=== PATIENT | female | born 1960 | race Caucasian/White ===

== ENCOUNTER → 2019-07-02 08:14 | Outpatient (CLI) | payer BC ==
--- NOTE | ~2019-07-02 | ST ---
PATIENT:JORGE LUIS HOWARD MEDICAL RECORD: [id number] SEX: F LOCATION:[facility] ORDER #: ADMISSION DATE: 07/02/19 AGE OF PATIENT: 59 REFERRING PHYSICIAN: INTERPRETING PHYSICIAN: DELGADO WOLFE MD DATE OF SERVICE: 07/02/2019 Nuclear Stress Test INDICATIONS: Angina, shortness of breath, syncope. She was exercised on standard Lexiscan protocol with 28 mCi of sestamibi injected at peak stress, 9 mCi used previously for rest images. FINDINGS: Gated SPECT reveals preserved ejection fraction at 66% with good wall motioning and thickening and brightening throughout all segments. SPECT Imaging: Cardiolite was used as myocardial perfusion agent. There is reversibility throughout the anterior and apical segments. This includes the basal, mid, apical anterior segments as well as the apex itself. The degree of reversibility is mild to moderate, the amount of myocardium involved is moderate. OVERALL IMPRESSION: This is an intermediate risk abnormal nuclear stress test, reversibility throughout the anteroapical segments, suggestive of hemodynamically significant coronary artery disease. TRANSINT:[id number] Voice Confirmation ID: [id number] DOCUMENT ID: [id number] DELGADO WOLFE MD CC: KARELY NAVARRO MD [id number] DICTATION DATE: 07/05/19 1218 SYSTEMS ADMINISTRATION ANALYST: 07/05/19 2237 DEP CLI 07/02/19 [address] [place] [address]
--- NOTE | ~2019-07-02 | EC ---
PATIENT:JORGE LUIS HOWARD DATE OF SERVICE: 07/02/19 SEX: F MEDICAL RECORD: [id number] DATE OF : 62 LOCATION:D[facility] AGE OF PATIENT: 59 ADMISSION DATE: 07/02/19 REFERRING PHYSICIAN: INTERPRETING PHYSICIAN: DELGADO LYNN MD ECHOCARDIOGRAM REPORT ECHO CHARGES 4 ECHO COMPLETE Date: 07/02/19 CLINICAL DIAGNOSIS: CAD/MURMUR/ANGINA ECHOCARDIOGRAPHIC MEASUREMENTS (adult normal given) AC root (d.<3.7cm) 3.0 cm LV Septum d (<1.2 cm> 1.1 cm Valve Excursion 1.5 cm LV Septum (systole) 1.4 cm Left Atria (s.<4.0cm> 3.0 cm LVPW d(<1.2cm) 1.4 cm RV (d.<2.3cm) 3.0 cm LVPW (sytole) 1.4 cm LV diastole(<5.6CM) 4.4 cm MV E-F(>70mm/sec) cm LV systole 3.0 cm LVOT Diameter 1.9 cm MV exc.(>10mm) 1.3 cm Est.ejection fraction (50-75%) % DOPPLER: LVIT cm/sec A 078.0cm/sec E 91. cm/sec LA cm/sec RVSP 27 mmHg LVOT 84 cm/sec AOP1/2T m/s Asc. Ao 108 cm/sec RVOT 58 cm/sec RA cm/sec PA 82 cm/sec AV Gradient Peak 4.68 mmHg AV Mean 2.60 mmHg AV Area 2.1 cm MV Gradient Peak 4.15 mmHg MV Mean 1.67 mmHg MV Area cm COMMENTS: Verifier Operator: Deepa BARNES Report Checker: 1 Dr. Lynn TAPE# PACS Pericardial Effusion N DATE OF SERVICE: 07/02/2019 ECHOCARDIOGRAM FINDINGS: 1. Left ventricular chamber size is within normal limits. Left ventricular systolic function is normal. Overall ejection fraction estimated at 60%. 2. Left atrium, right atrium, and right ventricle chamber sizes are within normal limits. 3. Valvular structures have normal structure and motion. ECHOCARDIOGRAM REPORT [id number] JORGE LUIS HOWARD 4. Doppler interrogation reveals mild mitral regurgitation, mild tricuspid regurgitation, no other valvular insufficiency or stenosis. Pulmonary systolic pressure is normal estimated at 27 mmHg. 5. No evidence of pericardial effusion or left ventricular thrombus. TRANSINT:[id number] Voice Confirmation ID: [id number] DOCUMENT ID: [id number] DELGADO LYNN MD CC: [id number] DICTATION DATE: 07/03/19 1312 ROCKET MOTOR TESTER: 07/03/19 1724 DEP CLI 07/02/19 [facility] [address] [id number]
[~2019-07-02 08:14] MED LIST: ESTRACE2 MG PO; FENOFIBRATE160 MG PO; GEODON80 MG PO; LAMICTAL100 MG PO; MOBIC7.5 MG PO; OXYBUTYNIN CHLOR5 MG PO; TRAZODONE HCL150 MG PO; ULTRAM50 MG PO; WELCHOL625 MG PO
[2019-07-13 08:15] VITALS: BMI 25.7
== END | disposition home or self-care (01) ==
LOC: D.HCCECHO 08:14
PROVIDERS: ATTEND Internal Medicine Interventional Cardiology
DX: I20.9 Angina pectoris, unspecified (principal); I25.10 Atherosclerotic heart disease of native coronary artery without angina pectoris

== ENCOUNTER → 2019-07-13 07:28 | Outpatient (CLI) | payer BC ==
[~2019-07-13] VITALS: Ht 160 cm; Wt 65.9 kg
--- NOTE | ~2019-07-13 | HEMODYNAMI ---
PATIENT:JORGE LUIS HOWARD MEDICAL RECORD: [id number] : 62 LOCATION:[facility] ADMISSION DATE: 07/13/19 Generatedon:07/13/201910:50 Patient name: JORGE LUIS HOWARD Patient #: [id number] SSN: [id number] : 1960 Date of study: 07/13/2019 Page: Of Hemodynamic Procedure Report Patient Data Patient Demographics Procedure consent was obtained First Name: JORGE LUIS Gender: Female Last Name: LEE : 1960 Patient #: [id number] Age: 59 year(s) Race: SSN: [id number] Additional ID: [id number] Contact details [address]: [address] [place] [address] State: [place] City: [place] Zip code: [address] Past Medical History Performed procedures and imaging results Date Procedure Procedure Results Comments 07/02/2019 Stress testing Positive->Intermediate with SPECT MPI risk Allergies Allergen Reaction Date Comments Reported Other allergy 07/13/2019 statins, Admission Admission Data Admission Date: 07/13/2019 Admission Time: 7:28 Arrival Date: 07/13/2019 Arrival Time: 0:00 Insurance Payor: Private health insurance [facility] #: [id number] Height (in.): 64 BSA: 1.71 (m2) Height (cm.): 162.56 BMI: 25.06 (kg/m2) Weight (lbs.): 146 Weight (kg.): 66.22 Lab Results Lab Result Date: 07/13/2019 Lab Result Time: 0:00 Biochemistry Name Units Result Min Max BUN mg/dl 16 --(---*)-- 7 18 Creatinine mg/dl 1 --(--*-)-- 0.6 1.3 CBC Name Units Result Min Max Hemoglobin g/dl 12.2 *-(----)-- 13.5 17.5 Procedure Procedure Types Cath Procedure Diagnostic Procedure LHC LHC w/Coronaries Sedation Charges Moderate Sedation up to 15 minutes Procedure Description Procedure Date Procedure Date: 07/13/2019 Procedure Start Time: 10:42 Procedure End Time: 10:48 Procedure Staff Name Function Sammy Lynn MD Performing Physician [place] Vila RT Monitor Pili Hernandez RN Nurse Cathy Lara RT Scrub Indication Angina Syncope Dyspnea Procedure Data Cath Procedure Fluoroscopy Diagnostic fluoroscopy Total fluoroscopy Time: 0.9 time: 0.9 min min Diagnostic fluoroscopy Total fluoroscopy dose: 162 dose: 162 mGy mGy Contrast Material Contrast Material Type Amount (ml) Isovue 300 41 Entry Location Entry Primary Successful Side Size Upsize Upsize Entry Closure Succes sful Closure Location (Fr) 1 (Fr) 2 (Fr) Remarks Device Remarks Femoral Right 5 Fr Exoseal artery Estimated blood loss: 5 ml Diagnostic catheters Device Type Used For End Catheter Placement MULTIPACK Pigtail 5 Fr Procedure catheter MULTIPACK JL 4.0 5Fr Procedure catheter MULTIPACK 3DRC 5Fr catheter Procedure Complications No complications Procedure Medications Medication Administration Route Dosage 0.9% NaCl I.V. 100 ml/hr Oxygen etCO2 Nasal cannula 2 l/min Lidocaine 2% added to field 20 Heparin Flush Bag added to field 2 bags (1000units/500ml NS) Versed I.V. 2 mg Fentanyl I.V. 50 mcg Versed I.V. 2 mg Fentanyl I.V. 50 mcg Hemodynamics Rest BSA: 1.71 (m2) HGB: 12.2 (g/dl) O2 Consumption: Estimated: 232.56 (ml/min) O2 Co nsumption indexed: Estimated:136 (ml/min/m) Pre Cath Intra NCS Post Cath Vital Signs Time Heart Resp SPO2 etCO2 NIBP Rhythm Pain Sedation Rate (ipm) (%) (mmHg) (mmHg) Status Level (bpm) 9:59:52 60 12 100 37.5 127/57(85) NSR 0 (11) 10(A) , No pain 10:04:02 60 3 100 11.2 134/69(94) NSR 0 (11) 10(A) , No pain 10:08:21 57 13 99 28.5 112/48(77) SB 0 (11) 10(A) , No pain 10:12:29 54 13 98 30 124/58(81) SB 0 (11) 10(A) , No pain 10:16:43 61 13 98 22.5 123/52(82) NSR 0 (11) 10(A) , No pain 10:21:00 57 15 98 32.3 108/47(76) SB 0 (11) 10(A) , No pain 10:25:07 60 11 99 32.3 119/58(77) NSR 0 (11) 10(A) , No pain 10:29:21 58 10 98 21 100/49(71) SB 0 (11) 10(A) , No pain 10:33:29 55 10 98 15.7 106/49(72) SB 0 (11) 10(A) , No pain 10:37:41 53 10 97 24 97/43(61) SB 0 (11) 10(A) , No pain 10:41:49 51 11 97 30.8 102/45(67) SB 0 (11) 10(A) , No pain 10:45:55 61 13 98 34.5 106/54(72) SB 0 (11) 10(A) , No pain Medications Time Medication Route Dose Verified Delivered Reason Notes Eff ectiveness by by 9:59:21 0.9% NaCl I.V. 100 Sammy Pili used for ml/hr Leah Hernandez contract attorney 9:59:28 Oxygen etCO2 2 Sammy Pili used for Nasal l/min Leah Hernandez procedure cannula RN 9:59:32 Lidocaine 2% added 20ml Sammy Smamy for local to vial Leah Lynn MD anesthetic field 9:59:37 Heparin Flush added 2 Sammy Sammy used for Bag to bags Leah Lynn MD procedure (1000units/500ml field NS) 10:42:03 Versed I.V. 2 mg Sammy Pili for Leah Hernandez sedation RN 10:42:08 Fentanyl I.V. 50 Sammy Pili for mcg Leah Hernandez sedation RN 10:46:09 Versed I.V. 2 mg Sammy Pili for Leah Hernandez sedation RN 10:46:13 Fentanyl I.V. 50 Sammy Pili for mcg Leah Hernandez sedation job placement officer Log Time Note 9:52:45 Arrival Date: 07/13/2019 12:00:00 AM 9:52:51 Insurance Payor : Private health insurance 9:52:59 Patient Height : 64 inches 9:53:13 Patient Weight : 146 lbs 9:56:16 Lab Result : Hemoglobin 12.2 g/dl 9:56:16 Lab Result : Creatinine 1 mg/dl 9:56:16 Lab Result : BUN 16 mg/dl 9:57:53 Indication : Angina 9:58:00 Indication : Syncope 9:58:07 Indication : Dyspnea 9:58:21 Procedure Status Elective Heart Cath (OP). 9:58:27 Pili Hernandez RN sent for patient. Start room use. 9:58:29 Time tracking: Regular hours (M-F 7:00 - 5:00) 9:58:34 Plan of Care:Hemodynamics will remain stable., Cardiac rhythm will remain stable., Comfort level will be maintained., Respiratory function will remain adequate., Patient/ family verbilizes understanding of procedure., Procedure tolerated without complication., Recovers from procedure without complications.. 9:58:40 Patient received from Pre/Post Procedure Room to CCL 2 Alert and oriented. Tansferred to table in Supine position. 9:58:47 Signed procedure consent form obtained from patient. 9:58:48 Correct patient and procedure confirmed by team. 9:58:49 ECG and BP/O2 sat monitors applied to patient. 9:58:50 Vital chart was started 9:58:56 Full Disclosure recording started 9:59:13 H&P Date Dictated: 06/17/2019 Within 30 days and on chart., H&P Addendum completed by physician on day of procedure. (MUST COMPLETE FOR ALL OUTPATIENTS). 9:59:16 Pre-procedure instructions explained to patient. 9:59:21 0.9% NaCl 100 ml/hr I.V. was administered by Pili Hernandez RN; used for procedure; Verbal order read back and verified. 9:59:22 Family in waiting room. 9:59:25 Patient NPO since Midnight. 9:59:28 Oxygen 2 l/min etCO2 Nasal cannula was administered by Pili Hernandez RN; used for procedure; Verbal order read back and verified. 9:59:32 Lidocaine 2% 20ml vial added to field was administered by Sammy Lynn MD; for local anesthetic; Verbal order read back and verified. 9:59:37 Heparin Flush Bag (1000units/500ml NS) 2 bags added to field was administered by Sammy Lynn MD; used for procedure; Verbal order read back and verified. 9:59:52 Patient allergic to Other allergystatins, 9:59:54 Is the patient allergic to Iodine/contrast media? No. 9:59:56 Was the patient premedicated? Yes 9:59:57 Is patient on blood thinner?No 9:59:59 Patient diabetic? No. 10:00:02 Snore? Yes 10:00:03 Sleep apnea? No 10:00:07 Dentures? No ? 10:00:39 IV patent on arrival in left forearm with 0.9% NaCl at O. 10:00:44 Lab results completed and on chart. 10:01:27 Stress Test: yes; abnormal anteriorapical 10:01:39 Right groin area was prepped with chlora-prep and draped in sterile fashion 10:01:41 Alarms reviewed by R. N. 10:01:41 Sharps counted by scrub and verified by R.N. 10:01:44 Physician paged 10:04:33 Risk of Mortality: 1.5 10:04:36 Risk of blood transfusion: 1.5 10:04:40 Risk of JO: 1.0 10:25:35 2) 60-89 Mildly reduced kidney function, and other findings (as for stage 1) point to kidney disease. 10:25:53 Maximum allowable contrast dose (3.7 X eGFR X 0.75)166 ml. 10:41:45 Physician arrived 10:41:46 --------ALL STOP TIME OUT------ 10:41:46 Final Timeout: patient, procedure, and site verified with staff and physician. All members of the team are in agreement. 10:41:48 Right groin site verified by team. 10:41:57 Fire Safety Assessment: A--An alcohol-based skin anteseptic being used preoperatively., C--Open oxygen or nitrous oxide is being used., D--An ESU, laser, or fiber-optic light is being used. 10:42:03 Versed 2 mg I.V. was administered by Pili Hernandez RN; for sedation; Verbal order read back and verified. 10:42:05 Physical assessment completed. ASA score P 3 - A patient with severe systemic disease as per Sammy Lynn MD. 10:42:08 Fentanyl 50 mcg I.V. was administered by Pili Hernandez RN; for sedation; Verbal order read back and verified. 10:42:14 Use device set Femoral Dx 10:42:17 Procedure started. 10:42:25 Local anesthetic to right femoral artery with Lidocaine 2% by Sammy Lynn MD.INITIAL ACCESS ONLY 10:42:35 A 5 Fr sheath was inserted into the Right Femoral artery 10:42:39 J wire advanced. 10:42:41 ACIST Syringe (38564) opened to sterile field. 10:42:42 Bag Decanter (2002S) opened to sterile field. 10:42:42 Medline Cath Pack ([id number]) opened to sterile field. 10:42:44 ACIST Hand Control (20763) opened to sterile field. 10:42:44 ACIST Manifold (95678) opened to sterile field. 10:42:45 DIAGNOSTIC Multipack 5Fr catheter set ([id number]) opened to sterile field. 10:42:48 SHEATH 5FR Gurley (WEQ034) opened to sterile field. 10:42:49 EMERALD Guide Wire (958-098) opened to sterile field. 10:42:53 Tegaderm 4 x 4 (1626W) opened to sterile field. 10:43:41 A MULTIPACK Pigtail 5 Fr catheter was advanced over the wire and used for Procedure. 10:44:10 EF : 65 % 10:44:14 Catheter removed. 10:44:20 A MULTIPACK JL 4.0 5Fr catheter was advanced over the wire and used for Procedure. 10:44:23 LCA angiography performed. 10:45:17 Catheter removed. 10:46:08 A MULTIPACK 3DRC 5Fr catheter was advanced over the wire and used for . 10:46:09 Versed 2 mg I.V. was administered by Pili Hernandez RN; for sedation; Verbal order read back and verified. 10:46:13 Fentanyl 50 mcg I.V. was administered by Pili Hernandez RN; for sedation; Verbal order read back and verified. 10:46:25 RCA angiography performed. 10:46:30 Catheter removed. 10:46:33 EXOSEAL 5Fr (EX500) opened to sterile field. 10:46:50 Sheath removed intact; hemostasis achieved with Exoseal to the Right Femoral artery. 10:46:53 Procedure ended.(Physican Out) 10:47:23 Fluoroscopy time 00.90 minutes. 10:47:29 Fluoroscopy dose: 162 mGy 10:47:29 Flurop Dose total: 162 10:47:33 Dose Area Product 7907 mGy/cm. 10:47:37 Contrast amount:Isovue 300 41ml. 10:47:40 Maximum allowable dose exceeded? No. 10:47:42 Sharps counted by scrub and verified by R.N. 10:47:44 Insertion/operative site no bleeding no hematoma. 10:47:47 Post right femoral artery:stable 10:47:50 Post Procedure Pulses reassessed and unchanged 10:47:54 Post-procedure physical assessment completed. ASA score P 2 - A patient with mild systemic disease as per Sammy Lynn MD. 10:47:57 Post procedure rhythm: unchanged. 10:48:01 Estimated blood loss: 5 ml 10:48:03 Post procedure instruction explained to patient.Patient verbalizes understanding. 10:48:14 Procedure type changed to Cath procedure, Diagnostic procedure, LHC, C w/Coronaries, Sedation Charges, Moderate Sedation up to 15 minutes 10:48:16 Procedure and supply charges have been captured, reviewed, submitted and are correct. 10:48:43 Procedure Complication : No complications 10:48:46 Vital chart was stopped 10:48:48 [facility] Findings: mild to moderate CAD (<70%) 10:48:49 Operative report dictated upon procedure completion. 10:48:53 Report given to Pre/Post Procedure Room. 10:48:56 Patient transfered to Pre/Post Procedure Room with Stretcher. 10:48:58 Procedure ended. 10:48:58 Full Disclosure recording stopped 10:49:04 End room use (Document Last) 10:49:26 End room use (Document Last) 10:50:10 End room use (Document Last) Device Usage Item Name Manufacture Quantity Catalog Hospital Part Current Minimal L ot# / Number Charge Number Stock Stock Serial# Code ACIST Acist 1 75107 530613 730951 [id number] 20 Syringe Medical (66021) Systems Inc Bag Microtek 1 231485 16392 434069 5 Decanter Medical Inc. () Medline Medline 1 [id number] 895447 89256 719372 5 Cath Pack ([id number]) ACIST Hand Acist 1 65836 823051 700339 047644 5 Control Medical (47876) Systems Inc ACIST Acist 1 41390 802023 826923 859519 5 Manifold Medical (86881) Systems Inc DIAGNOSTIC Cardinal 1 UK9981 795341 62763 779565 30 Multipack Health 5Fr catheter set (PY8732) SHEATH 5FR Terumo 1 FAZ069 521232 307722 544457 5 Gurley (VGJ601) EMERALD Cardinal 1 502455 171433 073390 172398 5 Guide Wire [facility] (502455) Tegaderm 4 3M 1 1626W 484292 867051 102193 5 x 4 (1626W) MULTIPACK Cardinal 1 121313 5 Pigtail 5 Health Fr catheter MULTIPACK Cardinal 1 779563 5 JL 4.0 5Fr Health catheter MULTIPACK Cardinal 1 032043 5 3DRC 5Fr Health catheter EXOSEAL 5Fr Cardinal 1 EX500 667217 523430 637094 10 (EX500) Health Signature Audit [place] Stage Time Signature Unsigned Intra-Procedure 07/13/2019 [place] 10:49:26 AM RT(R) Intra-Procedure 07/13/2019 Pili Hernandez 10:50:10 AM RN Intra-Procedure 07/13/2019 Sammy Lynn 10:50:32 AM Signatures Performing Physician : Signature : Sammy Lynn MD Date : Time : Monitor : [place] Vila Signature : RT Date : Time : Nurse : Pili Hernandez RN Signature : Date : Time : [facility] [address] [place] [address]
--- NOTE | ~2019-07-13 | OP ---
PATIENT NAME: JORGE LUIS HOWARD MEDICAL RECORD: [id number] :62 LOCATION:[facility] ADMISSION DATE: SURGEON: DELGADO WOLFE MD DATE OF OPERATION: 07/13/2019 PROCEDURES: 1. Left heart catheterization. 2. Selective coronary angiography. 3. Left ventriculogram. INDICATION: Angina, abnormal nuclear stress test. DESCRIPTION OF PROCEDURE IN DETAIL: After informed consent was obtained and after a detailed description of risks, benefits as well as alternative therapies, the patient elected to proceed with angiogram and heart catheterization. The right femoral area was prepped and draped in normal sterile fashion. Right femoral artery was cannulated via modified Seldinger technique with placement of 5-Grenadian sheath. All catheters exchanged through this sheath. FINDINGS: Left ventriculogram was performed in standard 30-degree ESCOBAR view, reveals good cardiac wall motion throughout all segments. Overall ejection fraction estimated at 60%. SELECTIVE CORONARY ANGIOGRAPHY: Left main, left anterior descending, left circumflex, right coronary artery are all smooth-walled vessels with no angiographic evidence of coronary artery disease. OVERALL IMPRESSION: 1. No angiographic evidence of coronary artery disease. 2. Normal left heart pressures. 3. Normal left ventricular systolic function. Chest pain is noncardiac in etiology. No further cardiac workup needs to be ascertained. TRANSINT:[id number] Voice Confirmation ID: [id number] DOCUMENT ID: [id number] DELGADO WOLFE MD CC: [id number] DICTATION DATE: 07/13/19 1049 HUMAN RESOURCES TRAINEE: 07/13/19 1554 [facility] [address] [place] [address]
[2019-07-13 08:15] VITALS: BP 114/48; Ht 160 cm; Wt 65.9 kg
[2019-07-13 08:37] LABS: ANION GAP 12.5 mmol/L (8-16); CALCIUM 8.5 mg/dL (8.5-10.1); CARBON DIOXIDE 27.4 mmol/L (21.0-32.0); CHOL - HDL RATIO 3.7 ratio (2.3-4.1); LDL-HDL RATIO 2.3 ratio (1.5-3.5); POTASSIUM - SERUM 3.9 mmol/L (3.5-5.1)
[2019-07-13 08:57] LABS: BASOPHILS 0.7 % (0-2); EOSINOPHILS 3.9 % (0-7); HEMATOCRIT 37.3 % (36.0-48.0); HEMOGLOBIN 12.2 g/dL (12-16); IMMATURE GRANULOCYTES 0.2 % (0-5); LYMPHOCYTES 32.2 % (15-50); MCHC 32.7 g/dL (31.0-37.0); MCV 91.6 fL (80.0-100.0); MEAN PLATELET VOLUME 10.4 fL (7.4-10.4); MONOCYTES 7.6 % (2-11); NEUTROPHILS 55.4 % (40-80); PLATELET COUNT 344 10x3/uL (130-400); RBC 4.07 10x6/uL (4.00-5.40); RDW 12.4 % (11.5-14.5); WBC 4.4 10x3/uL (4.8-10.8)
--- NOTE | 2019-07-13 10:58 | NUR ---
DR WOLFE IN TO SEE PT. ADVISED NO BLOCKAGE, F/U WITH PCP DR JENKINS, NO F/U NEEDED WITH CARDIOLOGY.
--- NOTE | 2019-07-13 11:04 | NUR ---
REC TO ROOM VIA STRETCHER. R GROIN SOFT, NO BLEEDING/HEMATOMA. PT PULSE PALPABLE. VSS, SB 58, BP 106/53, RR 16 SAT 98% ON 2LNC.
--- NOTE | 2019-07-13 11:15 | NUR ---
RIGHT GROIN DRESSING C/D/I. NO S/S OF HEMATOMA NOTED. CALL LIGHT WITHIN REACH. FAMILY AT BEDSIDE.
--- NOTE | 2019-07-13 11:45 | NUR ---
PT SUPINE. RIGHT GROIN DRESSING C/D/I. NO S/S OF HEMATOMA NOTED. DENIES NAUSEA/PAIN AT THIS TIME. CALL LIGHT WITHIN REACH. FAMILY AT BEDSIDE.
--- NOTE | 2019-07-13 12:05 | NUR ---
RIGHT GROIN DRESSING C/D/I. NO S/S OF HEMATOMA NOTED. PT'S HEAD OF BED INC TO 30 DEGREES. TOLERATED WELL. VSS. RIGHT PEDAL PULSE PALPABLE. PT SET UP WITH SANDWICH TRAY AND DRINK. NO OTHER NEEDS AT THIS TIME. FAMILY AT BEDSIDE. CALL LIGHT WITHIN REACH.
--- NOTE | 2019-07-13 12:22 | NUR ---
PT FINISHED LUNCH. TOLERATED WELL. NO C/O NAUSEA. VSS AT THIS TIME. HR 52 SB. BP 108/43. RESP 12. O2 SAT 98% ON ROOM AIR. RIGHT GROIN DRESSING C/D/I. NO S/S OF HEMATOMA NOTED. CALL LIGHT WITHIN REACH. FAMILY AT BEDSIDE.
--- NOTE | 2019-07-13 12:45 | NUR ---
R GROIN REMAINS CDI, SOFT, NO BLEEDING/HEMATOMA NOTED. IV DC W TIP INTACT. MONITORING DISCONTINUED. PT DRESSING W 'S HELP.
--- NOTE | 2019-07-13 12:55 | NUR ---
DC INSTRUCTIONS REVIEWED W PT/. DECLINES WHEELCHAIR. AMBULATED TO RESTROOM, THEN TO PRIVATE VEHICLE FOR DC HOME W .
== END | disposition home or self-care (01) ==
LOC: D.CATH 07:28
PROVIDERS: ATTEND Internal Medicine Interventional Cardiology
DX: I20.9 Angina pectoris, unspecified (principal); R94.39 Abnormal result of other cardiovascular function study; E78.5 Hyperlipidemia, unspecified; R00.2 Palpitations; R07.9 Chest pain, unspecified; I38 Endocarditis, valve unspecified; R06.09 Other forms of dyspnea; R55 Syncope and collapse; I49.3 Ventricular premature depolarization; R01.1 Cardiac murmur, unspecified